=== PATIENT | female | born 1990 | race Caucasian/White ===

== ENCOUNTER 2019-03-22 21:02 | Emergency (ER) | payer MEDICAID ==
[~2019-03-22] VITALS: Ht 165.1 cm; Wt 98.4 kg
[2019-03-22 21:07] VITALS: BP 142/83; Ht 165.1 cm; Wt 98.4 kg
== END 2019-03-22 22:04 | disposition home or self-care (01) ==
LOC: ED 21:02
DX: J06.9 Acute upper respiratory infection, unspecified (principal)